=== PATIENT | female | born 1960 | race Caucasian/White ===

== ENCOUNTER 2017-08-30 14:55 | Emergency (ER) | payer BC ==
[2017-08-30] MEDS ORDERED: oxyCODONE 5 MG Tab PO ONE (15:23)
[2017-08-30] MEDS ORDERED: Ketamine 500 mg/10 ML MDV IV ONE (15:55)
[2017-08-30] MEDS ORDERED: Midazolam 1 MG/ML 2 ML SDV IVPUSH ONE (15:55)
[2017-08-30] MEDS ORDERED: Ondansetron 4 MG/2 ML SDV IVPUSH ONE (15:55)
[2017-08-30] MEDS ORDERED: Sodium Chloride 0.9% 10 ML Syringe FLUSH PRN (15:55)
[2017-08-30] MEDS ORDERED: fentaNYL 100 MCG/2 ML SDV ONE (16:19)
[2017-08-30] MEDS ORDERED: fentaNYL 100 MCG/2 ML SDV IVPUSH ONE (16:40)
--- NOTE | 2017-08-30 18:01 | EDM.PDOC ---
ED HPI GENERAL MEDICAL PROBLEM - General Chief Complaint: Upper Extremity Injury/Pain Stated Complaint: LEFT ARM INJURY Time Seen by Provider: 08/30/17 15:10 Source of Information: Reports: Patient History Limitations: Reports: No Limitations - History of Present Illness INITIAL COMMENTS - FREE TEXT/NARRATIVE: 57 y/o F presents with L wrist pain after falling on an outstretched hand. She slipped on the ice. She fell forward and injured her L wrist. C/o moderate pain to L wrist and L wrist deformity. Denies additional injury. She is L hand dominant. Has intermittent numbness of all fingers in her L hand. No weakness. Denies hand, elbow, or shoulder pain. No head injury, back or neck pain, chest pain, SOB, abd pain, or other complaint. Treatments [employer] EXAMINER: Reports: Other (see below) Other Treatments [employer] EXAMINER: ice Left Wrist Pain Score (Numeric/FACES): 0 - Related Data Allergies Allergy/AdvReac Type Severity Reaction Status Date / Time Iodinated Contrast- Oral and Allergy Rash Verified 08/30/17 15:11 IV Dye Penicillins Allergy Rash Verified 08/30/17 15:10 Home Meds: Home Meds Losartan [Cozaar] 25 mg PO BID 08/30/17 [History] Simvastatin [Zocor] 40 mg PO BEDTIME 08/30/17 [History] oxyCODONE 5 mg PO QID PRN #30 tab 08/30/17 [Rx] Past Medical History Cardiovascular History: Reports: High Cholesterol, Hypertension Social & Family History - Tobacco Use Smoking Status *Q: Never Smoker - Caffeine Use Caffeine Use: Reports: Coffee, Tea - Recreational Drug Use Recreational Drug Use: No Review of Systems - Review of Systems Review Of Systems: See Below Constitutional: Reports: No Symptoms Nose: Reports: No Symptoms Mouth/Throat: Reports: No Symptoms Respiratory: Reports: No Symptoms. Denies: Shortness of Breath Cardiovascular: Reports: No Symptoms. Denies: Chest Pain GI/Abdominal: Reports: No Symptoms. Denies: Abdominal Pain Musculoskeletal: Reports: Arm Pain Skin: Denies: Wound Neurological: Denies: Weakness ED EXAM, GENERAL - Physical Exam Exam: See Below Exam Limited By: No Limitations General Appearance: Alert, WD/WN, No Apparent Distress Eye Exam: Bilateral Eye: Normal Inspection Ears: Normal External Exam Nose: Normal Inspection Throat/Mouth: Normal Inspection, Normal Voice, No Airway Compromise Head: Atraumatic, Normocephalic Neck: Normal Inspection, Supple, Non-Tender Respiratory/Chest: No Respiratory Distress Cardiovascular: Normal Peripheral Pulses Peripheral Pulses: 2+: Radial (L) Back Exam: Normal Inspection. No: Vertebral Tenderness Extremities: Other (LUE: +L distal forearm deformity. Skin intact. Diffuse TTP about the wrist. 2+ radial pulse. No hand or elbow or additional L arm TTP. Distal motor/sensation/perfusion intact. No additional extremity abnormality. ) Neurological: Alert, Oriented, Normal Cognition, No Motor/Sensory Deficits Psychiatric: Normal Affect, Normal Mood Skin Exam: Warm, Dry, Intact, Normal Color, No Rash ED TRAUMA EXTREMITY PROCEDURES - Joint Reduction Site: Other (L distal radius fracture reduction ) Sedation: Conscious Sedation Pre-Procedure NV Status: Normal Post-Procedure NV Status: Normal Technique: Traction/Counter Traction Number of Attempts: 1 Post-Reduction Imaging: Completely Reduced, Fracture Seen (existing fracture, improved alignment ) Joint Reduction Complications: No - Splinting Left Upper Extremity Splint Site: L forearm Pre-Procedure NV Status: Normal Post-Procedure NV Status: Normal Splint Material: Plaster Splint Design: Sugar Tong Applied & Form Fitted By: Provider Provider Post-Splint Application NV Check: NV Status Normal, Good Position Complications: No Progress/Comments: post-reduction x-ray shows improved fracture alignment ED PROCEDURAL SEDATION - Pre Procedure Indications: fracture reduction Preparations: procedure explained, consent signed, oxygen, continuous pulse oximeter, suction, continuous doctor's assistant, constant attendance - Physical Exam Airway: normal anatomy Cardiovascular: normal heart sounds Respiratory: normal breath sounds Neurological: alert, responsive, NAD Meilampati Classification: 1 (soft palate, anterior/posterior tonsillar pillars , uvula visible) - Procedure Sedation Sedation: ketamine ASA Classification: 1 (Normal healthy patient) - Intra Procedure Condition during procedure: lightly sedated, vital signs stable, oxygenation stable, maintained airway well, handled secretions adequately Complications: none Reversal: none - Post Procedure Condition after procedure: alert, NAD, responds to verbal stimuli - Discharge Condition Patient returned to pre-procedure baseline: Yes Alert prior to discharge: Yes Ambulatory with assistance: Yes Vital signs normal: Yes Time spent with sedated patient: 20 min Course - Vital Signs Last Recorded V/S: Last Vital Signs Temp 36.0 C 08/30/17 15:08 Pulse 100 08/30/17 18:15 Resp 16 03/17/18 18:15 BP 144/87 H 08/30/17 18:15 Pulse Ox 97 08/30/17 18:15 - Orders/Labs/Meds Orders: Active Orders 24 hr Category Date Time Status Peripheral IV Care [RC] . DIRECTED Care 08/30/17 15:55 Active Wrist 2V Lt [CR] Stat Exams 08/30/17 17:20 Taken Wrist Comp Min 3V Lt [CR] Stat Exams 08/30/17 15:23 Taken Peripheral IV Insertion Adult [OM.PC] Routine Oth 08/30/17 15:55 Ordered Meds: Medications Discontinued Medications Generic Name Dose Route Start Last Admin Trade Name Freq PRN Reason Stop Dose Admin Fentanyl Confirm 08/30/17 16:19 08/30/17 16:50 Sublimaze Administered 08/30/17 16:20 Not Given Dose 100 mcg .ROUTE .STK-MED ONE Fentanyl 50 mcg 08/30/17 16:40 08/30/17 16:45 Sublimaze IVPUSH 08/30/17 16:41 50 mcg ONETIME ONE Administration Ketamine HCl 70 mg 08/30/17 15:55 08/30/17 16:57 Ketalar IV 08/30/17 15:56 100 mg ONETIME ONE Administration Midazolam HCl 2 mg 08/30/17 15:55 08/30/17 16:54 Versed 1 Mg/Ml IVPUSH 08/30/17 15:56 1 mg ONETIME ONE Administration Ondansetron HCl 4 mg 08/30/17 15:55 08/30/17 16:35 Zofran IVPUSH 08/30/17 15:56 4 mg ONETIME ONE Administration Oxycodone HCl 5 mg 08/30/17 15:23 08/30/17 15:45 Oxycodone PO 08/30/17 15:24 Not Given ONETIME ONE Sodium Chloride 10 ml 08/30/17 15:55 08/30/17 16:35 Saline Flush FLUSH 10 ml ASDIRECTED PRN Administration Keep Vein Open - Re-Assessments/Exams Free Text/Narrative Re-Assessment/Exam: XR shows distal radial fracture with moderate displacement. Consented patient for ketamine sedation for fracture reduction. Tolerated sedation with ketamine well. Post-reduction XR shows improved alignment of fracture. She is from out of town and will follow up with orthopedics in [facility] where she lives. Discussed return precautions. Departure - Departure Time of Disposition: 17:55 Disposition: Home, Self-Care 01 Clinical Impression: Closed fracture of left distal radius Qualifiers: Encounter type: initial encounter Fracture morphology: Domenico' Qualified Code(s ): S52.532A - Colles' fracture of left radius, initial encounter for closed fracture - Discharge Information Prescriptions: oxyCODONE 5 mg PO QID PRN #30 tab PRN Reason: Pain Instructions: Radial Fracture Referrals: PCP,Not In Area [Primary Care Provider] - Forms: ED Department Discharge Additional Instructions: 1. Wear sling as needed for comfort. 2. Keep arm elevated when possible. Ice wrist area on and off today and tomorrow. 3. Take ibuprofen and acetaminophen (Tylenol) as needed for pain. OK to take both meds together - they work and are cleared by your body in different ways 4. Keep splint dry. OK to loosen Harley-wrap if it feels too tight. 5. Follow up with the orthopedist of your choice in about a week. 6. Return to the closest Emergency Department for any new concerning symptoms, such as severe pain, numbness in the hand, or new concerns - My Orders Last 24 Hours: My Active Orders 08/30/17 15:23 Wrist Comp Min 3V Lt [CR] Stat 08/30/17 15:55 Peripheral IV Care [RC] . DIRECTED Peripheral IV Insertion Adult [OM.PC] Routine 08/30/17 17:20 Wrist 2V Lt [CR] Stat - Assessment/Plan Last 24 Hours: My Active Orders 08/30/17 15:23 Wrist Comp Min 3V Lt [CR] Stat 08/30/17 15:55 Peripheral IV Care [RC] . DIRECTED Peripheral IV Insertion Adult [OM.PC] Routine 08/30/17 17:20 Wrist 2V Lt [CR] Stat
--- NOTE | 2017-08-31 16:52 | CR ---
Left wrist: Four portable views of the left wrist were obtained. Comparison: No prior study. Distal radial fracture is seen with posterior impaction causing dorsal tilt of the distal radial articular margin. Slightly displaced ulnar styloid avulsion fracture is noted. Mild joint space narrowing is noted off the distal navicular bone. Soft tissue swelling is seen. Impression: 1. Fractures as described above and other incidental findings. Diagnostic code #3
--- NOTE | 2017-08-31 16:52 | CR ---
Left wrist: Two views of the left wrist were obtained. Comparison: Previous study performed earlier on same day (3:33 PM). Distal radial fracture shows better alignment with only minimal dorsal tilt of the distal radial articular margin remaining. Ulnar styloid avulsion fracture noted. Plaster cast is in place. Impression: 1. Better alignment. Plaster cast in place. Diagnostic code #2
== END 2017-08-30 18:15 | disposition home or self-care (01) ==
LOC: JD.ED 14:55
DX: S52.532A Colles' fracture of left radius, initial encounter for closed fracture (principal); W00.0XXA Fall on same level due to ice and snow, initial encounter; E78.00 Pure hypercholesterolemia, unspecified; I10 Essential (primary) hypertension; Z88.0 Allergy status to penicillin; Z79.899 Other long term (current) drug therapy; Z91.041 Radiographic dye allergy status
CPT/HCPCS: 25565; 73100; 73110; 96374; 96375; 99152; 99153; 99284; J2250; J2405; J3010; J7050; 25605